=== PATIENT | female | born 1945 | race Caucasian/White ===

== ENCOUNTER 2023-12-09 14:04 | Emergency (ER) | payer OTHER ==
[~2023-12-09] VITALS: Ht 149.9 cm; Wt 68.1 kg
[2023-12-09] MEDS: SODIUM CHLORIDE 0.9% 1,000 ML IVB ONE (14:40)
[2023-12-09] MEDS: ONDANSETRON HCL 4 MG/2 ML VIAL IV ONE (14:46)
[2023-12-09 15:28] LABS: Basophils # (auto) 0 10 ^3/uL (0-0.2); Basophils % (auto) 0.2 % (0.0-2.0); Eosinophils # (auto) 0 10 ^3/uL (0-0.8); Eosinophils % (auto) 0.2 % (0.0-7.0); Hematocrit 33.8 % (36.0-46.0); Hemoglobin 11.3 g/dL (12.2-16.2); Lymphocytes # (auto) 1.1 10 ^3/uL (0.4-5.4); Lymphocytes % (auto) 10.1 % (10.0-50.0); Mean Corpuscular Hgb Conc. 33.4 g/dL (32.0-36.0); Mean Corpuscular Volume 95.8 fL (80.0-100.0); Monocytes # (auto) 0.6 10 ^3/uL (0-1.3); Monocytes % (auto) 5.1 % (0.0-12.0); Neutrophils # (auto) 9.4 10 ^3/uL (1.6-8.6); Neutrophils % (auto) 84.4 % (37.0-80.0); Red Blood Cells 3.53 10^6/uL (4.0-5.20); Red Cell Distribution Width 14.5 % (11.8-14.3); White Blood Cell 11.1 10^3/uL (4.4-10.8)
[2023-12-09] MEDS: MORPHINE SULFATE 4 MG/ML SYR/VIAL IV ONE ×2 (15:36→18:17)
[2023-12-09 15:46] LABS: Alanine Aminotransferase 32 U/L (7-40); Albumin 3.7 g/dL (3.2-4.8); Alkaline Phosphatase 66 U/L (46-116); Anion Gap 9 (5-15); Aspartate Aminotransferase 41 U/L (13-40); BUN/Creatinine Ratio 32.9 (10.0-20.0); Blood Urea Nitrogen 24 mg/dL (9-23); Calcium 9.1 mg/dL (8.7-10.4); Carbon Dioxide 25 mmol/L (20-30); Chloride 106 mmol/L (98-107); Glucose 139 mg/dL (74-106); Magnesium 1.9 mg/dL (1.6-2.6); Potassium 3.6 mmol/L (3.5-5.1); Sodium 140 mmol/L (136-145)
[2023-12-09 15:47] LABS: Bilirubin, Total 1.4 mg/dL (0.2-1.0); Total Protein 5.8 g/dL (5.7-8.2)
[2023-12-09 15:59] LABS: INR 1.1 (0.9-1.15); Partial Thromboplastin Time 22.8 SEC (24.5-34.5); Prothrombin Time 11.6 sec (9.3-11.8)
[2023-12-09 17:00] LABS: Lactic Acid w/Reflex 2.7 mmol/L (0.4-2.0)
[2023-12-09 19:35] VITALS: PULSE 83; RESP 20; O2SAT 96
[2023-12-09] MEDS: SODIUM CHLORIDE 0.9% 1,000 ML IV ONE (20:39)
[2023-12-09 23:53] VITALS: BP 120/51; PULSE 93; RESP 20; TEMP 98.1; O2SAT 97
== END 2023-12-10 00:14 | disposition short-term general hospital (02) ==
LOC: ER 14:04 → EDBD 14:04 → ER 12-10 00:14
DX: S32.029A Unspecified fracture of second lumbar vertebra, initial encounter for closed fracture (principal); S01.01XA Laceration without foreign body of scalp, initial encounter; R55 Syncope and collapse; M19.90 Unspecified osteoarthritis, unspecified site; E07.9 Disorder of thyroid, unspecified; E78.5 Hyperlipidemia, unspecified; I10 Essential (primary) hypertension; W18.30XA Fall on same level, unspecified, initial encounter; Y93.89 Activity, other specified; Y92.000 Kitchen of unspecified non-institutional (private) residence as the place of occurrence of the external cause; Y99.8 Other external cause status
CPT/HCPCS: 12001; 36415; 70450; 71045; 72131; 72170; 80053; 83605; 83735; 83880; 84484; 85025; 85610; 85730; 93005; 96361; 96374; 96375; 96376; 99285; J2270; J2405; J7030; J7040